=== PATIENT | female | born 1995 | race Caucasian/White ===

== ENCOUNTER 2017-05-28 21:43 | Emergency (ER) | payer OTHER ==
[~2017-05-28] VITALS: Ht 162.6 cm; Wt 104.3 kg
[2017-05-28 22:25] VITALS: BP 141/79
--- NOTE | 2017-05-28 23:00 | PHYS DOC ---
Past Medical History Past Medical History: No Pertinent History Past Surgical History: Tonsillectomy Additional Past Surgical Histo: Laprascopic abdominal surgery, colonoscopy Alcohol Use: None Drug Use: None Adult General Chief Complaint Chief Complaint: ALLERGIC REACTION [facility] HPI Patient is a 21 year old female presents to the emergency department stating that yesterday she felt as though her throat was closing off in felt like she was having allergic reaction. She states that she took Benadryl yesterday and today and when she has gone through a whole bottle. She states that she take the medication as prescribed by the jazz singer. Patient presents here to the emergency department tonight stating that she still feels like she's got. Better stuck in the back of her throat. She states that she has numbness and tingling down into her lower extremities and feels that they are mottled. She denies any shortness of air difficulty breathing. She states that she has never had her lower legs appear mottled. She denies any injury or trauma. Patient is able to ambulate with a good steady gait. Patient states that she has a burning sensation to her lower extremities as well. Review of Systems Review of Systems Constitutional: Denies fever or chills [] Eyes: Denies change in visual acuity, redness, or eye pain [] HENT: Denies nasal congestion. States that she feels as though she has been on her [] her throat. Respiratory: Denies cough or shortness of breath [] Cardiovascular: No additional information not addressed in HPI [] GI: Denies abdominal pain, nausea, vomiting, bloody stools or diarrhea [] : Denies dysuria or hematuria [] Musculoskeletal: Denies back pain or joint pain [] Integument: Denies rash or skin lesions. Complaint of bilateral lower legs being mottled. States that they feel burning sensation. Neurologic: Denies headache, focal weakness or sensory changes [] Endocrine: Denies polyuria or polydipsia [] Current Medications Current Medications Current Medications Medications (Trade) Dose Ordered Sig/Lázaro Start Time Stop Time Status Last Admin Dose Admin Prednisone (Prednisone) 40 mg 1X ONCE 05/28/17 23:15 05/28/17 23:16 DC 05/28/17 23:27 40 MG Allergies Allergies Allergies Coded Allergies Type Severity Reaction Last Updated Verified No Known Drug Allergies 05/28/17 No Physical Exam Physical Exam Constitutional: Well developed, well nourished, no acute distress, non-toxic appearance. [] HENT: Normocephalic, atraumatic, bilateral external ears normal, oropharynx moist, no oral exudates, nose normal. Patient is able to talk in full sentences. Eyes: PERRLA, EOMI, conjunctiva normal, no discharge. [] Neck: Normal range of motion, no tenderness, supple, no stridor. [] Cardiovascular:Heart rate regular rhythm, no murmur [] Lungs & Thorax: Bilateral breath sounds clear to auscultation [] Skin: Warm, dry, no erythema, no rash. Bilateral lower extremities appear to be slightly mottled peripheral pulses are 2+ cap refill brisk less than 2 seconds. Back: No tenderness Extremities: No tenderness, no cyanosis, no clubbing, ROM intact, no edema. [] Neurologic: Alert and oriented X 3, normal motor function, normal sensory function, no focal deficits noted. [] Psychologic: Affect normal, judgement normal, mood normal. [] Current Patient Data Vital Signs Vital Signs Date Time Temp Pulse Resp B/P (MAP) Pulse Ox O2 Delivery O2 Flow Rate FiO2 05/28/17 22:25 98.2 132 16 99 Room Air 98.2 Lab Values Laboratory Tests Test 05/28/17 23:10 05/28/17 23:18 White Blood Count 9.7 x10^3/uL (4.0-11.0) Red Blood Count 5.15 x10^6/uL (3.50-5.40) Hemoglobin 15.2 g/dL (12.0-15.5) Hematocrit 45.0 % (36.0-47.0) Mean Corpuscular Volume 87 fL (79-100) Mean Corpuscular Hemoglobin 30 pg (25-35) Mean Corpuscular Hemoglobin Concent 34 g/dL (31-37) Red Cell Distribution Width 12.9 % (11.5-14.5) Platelet Count 340 x10^3/uL (140-400) Neutrophils (%) (Auto) 54 % (31-73) Lymphocytes (%) (Auto) 38 % (24-48) Monocytes (%) (Auto) 7 % (0-9) Eosinophils (%) (Auto) 1 % (0-3) Basophils (%) (Auto) 1 % (0-3) Neutrophils # (Auto) 5.2 x10^3uL (1.8-7.7) Lymphocytes # (Auto) 3.7 x10^3/uL (1.0-4.8) Monocytes # (Auto) 0.7 x10^3/uL (0.0-1.1) Eosinophils # (Auto) 0.0 x10^3/uL (0.0-0.7) Basophils # (Auto) 0.1 x10^3/uL (0.0-0.2) Prothrombin Time 13.3 SEC (11.7-14.0) Prothrombin Time INR 1.1 (0.8-1.1) PTT 33 SEC (24-38) Sodium Level 138 mmol/L (136-145) Potassium Level 3.3 mmol/L (3.5-5.1) L Chloride Level 102 mmol/L (98-107) Carbon Dioxide Level 27 mmol/L (21-32) Anion Gap 9 (6-14) Blood Urea Nitrogen 8 mg/dL (7-20) Creatinine 0.9 mg/dL (0.6-1.0) Estimated GFR (Cockcroft-Gault) 79.0 BUN/Creatinine Ratio 9 (6-20) Glucose Level 85 mg/dL (70-99) Calcium Level 9.4 mg/dL (8.5-10.1) Total Bilirubin 0.4 mg/dL (0.2-1.0) Aspartate Amino Transferase (AST) 23 U/L (15-37) Alanine Aminotransferase (ALT) 47 U/L (14-59) Alkaline Phosphatase 71 U/L (46-116) Total Protein 8.6 g/dL (6.4-8.2) H Albumin 4.3 g/dL (3.4-5.0) Albumin/Globulin Ratio 1.0 (1.0-1.7) Urine Collection Type Unknown Urine Color Dayanara Urine Clarity Clear Urine pH 5.5 Urine Specific [place] >=1.030 Urine Protein 30 mg/dL (NEG-TRACE) Urine Glucose (UA) Negative mg/dL (NEG) Urine Ketones (Stick) Trace mg/dL (NEG) Urine Blood Small (NEG) Urine Nitrite Negative (NEG) Urine Bilirubin Small (NEG) Urine Urobilinogen Dipstick 1.0 mg/dL (0.2 mg/dL) Urine Leukocyte Esterase Small (NEG) Urine RBC 0 /HPF (0-2) Urine WBC 1-4 /HPF (0-4) Urine Squamous Epithelial Cells Mod /LPF Urine Bacteria Moderate /HPF (0-FEW) Urine Mucus Marked /LPF Laboratory Tests 05/28/17 23:10 Laboratory Tests 05/28/17 23:10 EKG EKG [] Radiology/Procedures Radiology/Procedures [] Course & Med Decision Making Course & Med Decision Making Pertinent Labs and Imaging studies reviewed. (See chart for details) CBC within normal limits, CMP normal PT/INR normal, potassium slightly low at 3.3. Urine was positive for urinary tract infection. Patient was provided with prednisone here in the emergency department will discharge her with prednisone, and Atarax as well as Macrobid for urinary tract infection. She states she was on Bactrim approximately one month ago for UTI. She was recommended to follow- up with urology. Signs and symptoms to return back to emergency department been provided. Patient be discharged home in stable condition. Patient's questions were all answered at bedside. [] Dragon Disclaimer Dragon Disclaimer This electronic medical record was generated, in whole or in part, using a voice recognition dictation system. Departure Departure Impression: Primary Impression: Urinary tract infection Additional Impression: Itching Disposition: 01 HOME, SELF-CARE Condition: STABLE Referrals: BHUPINDER SOLITARIO (PCP) Patient Instructions: Itching-Brief, Urinary Tract Infection, [id number] Additional Instructions: Your urine was positive for urinary tract infection. Your potassium was slightly low at 3.3. Follow-up with your primary care physician in the next 7-10 days. Follow-up with the urologist in the next 7-10 days as well. Medications as prescribed. Drink plenty of fluids such as water and cranberry juice. Avoid cranberry juice cocktail, carbonated beverages, citrus fruits, alcohol, caffeine as these are all considered irritants to the bladder. Return to the emergency department sign symptoms of become worse. Scripts Prednisone (PREDNISONE) 20 Mg Tablet 40 MG PO DAILY for 7 Days, #14 TAB Prov: SHRADDHA MONTES APRN 05/28/17 Nitrofurantoin Monohyd/M-Cryst (MACROBID 100 MG CAPSULE) 100 Mg Capsule 1 CAP PO BID, #14 CAP Prov: SHRADDHA MONTES APRN 05/28/17 Hydroxyzine Hcl (HYDROXYZINE HCL) 25 Mg Tablet 1 TAB PO TID Y for ITCHING, #30 TAB Prov: SHRADDHA MONTES APRN 05/28/17 Problem Qualifiers Primary Impression: Urinary tract infection Urinary tract infection type: site unspecified Hematuria presence: without hematuria Qualified Codes: N39.0 - Urinary tract infection, site not specified SHRADDHA OMNTES APRN May 28, 2017 23:00
[2017-05-28] MEDS ORDERED: predniSONE 20 MG TABLET PO ONE (23:15)
[2017-05-28 23:24] LABS: BASO # 0.1 x10^3/uL (0.0-0.2); BASO % 1 % (0-3); EOS % 1 % (0-3); HEMOGLOBIN 15.2 g/dL (12.0-15.5); LYMPH # 3.7 x10^3/uL (1.0-4.8); LYMPH % 38 % (24-48); MEAN CORPUSCULAR HEMOGLOBIN 30 pg (25-35); MEAN CORPUSCULAR HGB CONC 34 g/dL (31-37); MEAN CORPUSCULAR VOLUME 87 fL (79-100); MONO % 7 % (0-9); NEUT % 54 % (31-73); PLATELET COUNT 340 x10^3/uL (140-400); RED BLOOD COUNT 5.15 x10^6/uL (3.50-5.40); RED CELL DISTRIBUTION WIDTH 12.9 % (11.5-14.5); WHITE BLOOD COUNT 9.7 x10^3/uL (4.0-11.0)
[2017-05-28 23:25] LABS: BILIRUBIN,URINE SMALL (NEG); GLUCOSE,URINE NEGATIVE (NEG); NITRITE,URINE NEGATIVE (NEG); PH,URINE 5.5; PROTEIN,URINE 30 mg/dL (NEG-TRACE)
[2017-05-28 23:31] LABS: BACTERIA,URINE MODERATE /HPF (0-FEW); RBC,URINE 0 /HPF (0-2); SQUAMOUS EPITHELIAL CELL,UR MOD /LPF
[2017-05-28 23:33] LABS: CALCIUM 9.4 mg/dL (8.5-10.1); CREATININE 0.9 mg/dL (0.6-1.0); POTASSIUM 3.3 mmol/L (3.5-5.1)
[2017-05-28 23:36] LABS: INR 1.1 (0.8-1.1); PROTHROMBIN TIME PATIENT 13.3 SEC (11.7-14.0)
[2017-05-28 23:38] LABS: ALBUMIN 4.3 g/dL (3.4-5.0); TOTAL BILIRUBIN 0.4 mg/dL (0.2-1.0); TOTAL PROTEIN 8.6 g/dL (6.4-8.2)
[2017-05-28] MEDS ORDERED: PRED20TA PO (23:50)
[2017-05-28] MEDS ORDERED: HYDR25TA PO (23:50)
[2017-05-28] MEDS ORDERED: NITR100C62 PO (23:50)
[2017-05-28] MEDS ORDERED: POTASSIUM CHLORIDE 20 MEQ TABLET.ER. PO ONE (23:55)
== END 2017-05-28 23:54 | disposition home or self-care (01) ==
LOC: ER 21:43
DX: L29.9 Pruritus, unspecified (principal); N39.0 Urinary tract infection, site not specified; T78.40XA Allergy, unspecified, initial encounter; R20.0 Anesthesia of skin; J39.2 Other diseases of pharynx
CPT/HCPCS: 36415; 80053; 81001; 85025; 85610; 85730; 87086; 99284; J7512